=== PATIENT | female | born 1975 | race Two or more races ===

== ENCOUNTER 2020-01-24 01:51 | Emergency (ER) | payer OTHER ==
[~2020-01-24] VITALS: Ht 162.6 cm; Wt 61.2 kg
== END 2020-01-24 04:55 | disposition home or self-care (01) ==
LOC: ER 01:51
DX: H70.892 Other mastoiditis and related conditions, left ear (principal)

== ENCOUNTER 2021-03-28 22:09 | Emergency (ER) | payer OTHER ==
[~2021-03-28] VITALS: Ht 162.6 cm; Wt 59.0 kg
[2021-03-28] MEDS ORDERED: PERCOCET 10-321 EACH PO (22:15)
[2021-03-29] MEDS ORDERED: DICLOFENAC POTA50 MG PO (02:30)
== END 2021-03-29 02:37 ==
LOC: ER 22:09
DX: H57.12 Ocular pain, left eye (principal); R51.9 Headache, unspecified